=== PATIENT | female | born 2000 | race Caucasian/White ===

== ENCOUNTER 2022-05-29 08:54 | Emergency (ER) | payer OTHER | END 2022-05-29 10:40 | disposition home or self-care (01) | LOC: CSHERS 08:54 | DX: K80.50 Calculus of bile duct without cholangitis or cholecystitis without obstruction (principal) | CPT/HCPCS: 76705 ==

== ENCOUNTER 2022-06-06 09:27 | Inpatient (IN) | payer OTHER ==
[~2022-06-06 09:27] MED LIST: Iopamidol 300 61% 100 ML VIAL FS ONE
[2022-06-06] MEDS ORDERED: Ketorolac Tromethamine 30 MG/ML VIAL ONE ×3 (10:18→15:04)
[2022-06-06] MEDS ORDERED: Ondansetron PF 4 MG/2 ML Vial ONE ×2 (10:18→12:58)
[2022-06-06 10:19] LABS: #Eosinphils 0.1 10x3/uL (0.0-0.5); #Monocytes 1.3 10x3/uL (0.0-1.1); #Neutrophils 15.2 10x3/uL (1.5-8.4); %Basophils 0.2 % (0.0-2.0); %Eosinophils 0.8 % (0.0-6.0); %Lymphocytes 8.9 % (18.0-47.0); %Monocytes 7.1 % (0.0-10.0); %Neutrophils 82.3 % (40.0-75.0); Hemoglobin 12.1 g/dL (12.0-15.5); Mean Corpuscular HGB CONC 32.8 g/dL (32.0-36.0); Mean Corpuscular Hemoglobin 28.7 pg (27.0-33.0); Mean Corpuscular Volume 87.4 fl (81.6-98.3); Mean Platelet Volume 9.7 fl (7.4-10.4); Platelet Count 398 10x3/uL (150-450); RBC Distribution Width 12.8 % (11.5-14.5); Red Blood Cell (RBC) Count 4.22 10x6/uL (3.90-5.03); White Blood Cell (WBC) Count 18.4 10x3/uL (3.5-10.5)
[2022-06-06 10:26] LABS: BHCG - Serum Negative (NEGATIVE); Pregs Control Background? CLEAR/WHITE (CLR/WHITE); Pregs Control Bar Appear? YES (CONTROL BAR)
[2022-06-06 10:32] LABS: ALT (SGPT) 73 U/L (8-55); AST (SGOT) 71 U/L (5-34); Albumin 4.2 g/dL (3.5-5.0); Alkaline Phosphatase 298 U/L (40-110); Anion Gap 15 mmol/L (10-20); BUN (Urea Nitrogen) 13 mg/dL (7.0-18.7); Bilirubin, Total 0.8 mg/dL (0.2-1.2); Calc. Creatinine Clearance 0 mL/min (70-130); Calcium 9.7 mg/dL (7.8-10.44); Carbon Dioxide 24 mmol/L (22-29); Chloride 98 mmol/L (98-107); Estimated GFR 104; Globulin 3.5 g/dL (2.4-3.5); Glucose 99 mg/dL (70-105); Lipase 17 U/L (8-78); Potassium 4.1 mmol/L (3.5-5.1); Protein, Total 7.7 g/dL (6.0-8.3); Sodium 133 mmol/L (136-145)
[2022-06-06 10:39] LABS: Bilirubin Neg (Negative); Blood, Urine 10 (Negative); Clarity Slightly Cloudy (Clear); Glucose, Urine (Dipstick) Normal (Negative); Ketone, Urine 150 mg/dL (Negative); Leukocyte 500 (Negative); Nitrite Negative (Negative); Protein, Urine (Dipstick) 30 mg/dl (Neg-Trace); Specific Gravity, Urine 1.015 (1.002-1.036)
[2022-06-06 11:02] LABS: RBC/HPF 0-3 HPF (0-3)
[2022-06-06 11:03] LABS: Bacteria/HPF 2+ HPF (None Seen)
[2022-06-06] MEDS ORDERED: Piperacillin/Tazobactam 3.375 GM VIAL ONE (11:10)
[2022-06-06] MEDS ORDERED: EPINEPHrine 1 MG/ML AMP ONE (12:54)
[2022-06-06] MEDS ORDERED: Bupivacaine PF 0.5% 30 ML VIAL ONE (12:55)
[2022-06-06] MEDS ORDERED: Fentanyl 100 MCG/2 ML VIAL ONE ×4 (12:57→16:37)
[2022-06-06] MEDS ORDERED: PROPOFOL 20 ML ONE (12:57)
[2022-06-06] MEDS ORDERED: Dexamethasone 20 MG/5 ML VIAL ONE (12:58)
[2022-06-06] MEDS ORDERED: Rocuronium Bromide 10 MG/ML (10ML VIAL) ONE (12:58)
[2022-06-06] MEDS ORDERED: Dexmedetomidine 200 MCG/2 ML VIAL ONE (13:01)
[2022-06-06 13:04] LABS: SARS-CoV-2 NAA Rapid Test Not Detected (NotDetected)
[2022-06-06] MEDS ORDERED: Succinylcholine 200 MG/10 ml SYRINGE FS ONE (13:21)
[2022-06-06] MEDS ORDERED: Water For Injection,Sterile 20 ML ONE (13:26)
[2022-06-06] MEDS ORDERED: Esmolol 100 MG/10 ML VIAL ONE (14:05)
[2022-06-06] MEDS ORDERED: Glycopyrrolate 0.2 MG/ML 5 ML SYRINGE ONE (14:34)
[2022-06-06] MEDS ORDERED: HYDROcodone/Acetaminophen 10/325 mg Tablet PO PRN ×2 (15:02)
[2022-06-06] MEDS ORDERED: Calcium Carbonate 500 MG ChewTAB PO PRN (15:02)
[2022-06-06] MEDS ORDERED: Morphine 4 MG/ML VIAL SLOW IVP PRN (15:02)
[2022-06-06] MEDS ORDERED: Acetaminophen 325 MG TAB PO PRN (15:02)
[2022-06-06] MEDS ORDERED: Morphine 2 MG/ML VIAL SLOW IVP PRN (15:02)
[2022-06-06] MEDS ORDERED: Mag-Al 1200 mg/1200 mg/30 ML UDCUP PO PRN (15:02)
[2022-06-06] MEDS ORDERED: Ondansetron PF 4 MG/2 ML Vial IVP PRN (15:02)
[2022-06-06] MEDS ORDERED: Piperacillin/Tazobactam 3.375 GM in Sodium Chloride 0.9% 100 ML IVPB SCH (18:00)
[2022-06-06] MEDS: Lactated Ringer's 1,000 ML IV SCH ×3 (18:04→22:41)
[2022-06-06] MEDS: Ketorolac Tromethamine 30 MG/ML VIAL IVP SCH ×2 (18:12→23:47)
[2022-06-06] MEDS: Piperacillin/Tazobactam 3.375 GM in Sodium Chloride 0.9% 100 ML IVPB SCH (18:14)
[2022-06-06 18:36] VITALS: BMI 46.6
[2022-06-06] MEDS: Enoxaparin Sodium 40 MG/0.4 ML SYRINGE SC SCH (20:51)
[2022-06-06] MEDS ORDERED: Famotidine/PF 20 mg/2ml Vial SLOW IVP SCH (21:00)
[2022-06-07] MEDS: Piperacillin/Tazobactam 3.375 GM in Sodium Chloride 0.9% 100 ML IVPB SCH ×3 (03:59→21:17)
[2022-06-07] MEDS: Ketorolac Tromethamine 30 MG/ML VIAL IVP SCH ×4 (05:50→23:41)
[2022-06-07 06:11] LABS: ALT (SGPT) 67 U/L (8-55); AST (SGOT) 46 U/L (5-34); Albumin 3.3 g/dL (3.5-5.0); Alkaline Phosphatase 230 U/L (40-110); Anion Gap 12 mmol/L (10-20); BUN (Urea Nitrogen) 7 mg/dL (7.0-18.7); Bilirubin, Total 0.4 mg/dL (0.2-1.2); Calc. Creatinine Clearance 250 mL/min (70-130); Carbon Dioxide 22 mmol/L (22-29); Chloride 108 mmol/L (98-107); Estimated GFR 128; Glucose 121 mg/dL (70-105); Potassium 4.3 mmol/L (3.5-5.1); Protein, Total 6.3 g/dL (6.0-8.3); Sodium 138 mmol/L (136-145)
[2022-06-07 06:17] LABS: #Monocytes 0.8 10x3/uL (0.0-1.1); #Neutrophils 17.7 10x3/uL (1.5-8.4); %Basophils 0.1 % (0.0-2.0); %Lymphocytes 4.8 % (18.0-47.0); %Monocytes 4.1 % (0.0-10.0); %Neutrophils 90.4 % (40.0-75.0); Hemoglobin 11.8 g/dL (12.0-15.5); Mean Corpuscular HGB CONC 33.8 g/dL (32.0-36.0); Mean Corpuscular Hemoglobin 28.9 pg (27.0-33.0); Mean Corpuscular Volume 85.3 fl (81.6-98.3); Mean Platelet Volume 10.1 fl (7.4-10.4); Platelet Count 382 10x3/uL (150-450); RBC Distribution Width 12.9 % (11.5-14.5); Red Blood Cell (RBC) Count 4.09 10x6/uL (3.90-5.03); White Blood Cell (WBC) Count 19.5 10x3/uL (3.5-10.5)
[2022-06-07] MEDS: Lactated Ringer's 1,000 ML IV SCH (11:24)
[2022-06-07] MEDS ORDERED: Ketorolac Tromethamine 30 MG/ML VIAL ONE (12:00)
[2022-06-07] MEDS: Enoxaparin Sodium 40 MG/0.4 ML SYRINGE SC SCH (21:18)
[2022-06-08] MEDS: Piperacillin/Tazobactam 3.375 GM in Sodium Chloride 0.9% 100 ML IVPB SCH ×3 (04:04→21:02)
[2022-06-08 05:16] LABS: #Basophils 0.1 10x3/uL (0.0-0.2); #Neutrophils 12.5 10x3/uL (1.5-8.4); %Basophils 0.3 % (0.0-2.0); %Eosinophils 0.2 % (0.0-6.0); %Lymphocytes 20.1 % (18.0-47.0); %Monocytes 5.6 % (0.0-10.0); Hemoglobin 11.6 g/dL (12.0-15.5); Mean Corpuscular HGB CONC 32.4 g/dL (32.0-36.0); Mean Corpuscular Hemoglobin 28.4 pg (27.0-33.0); Mean Corpuscular Volume 87.5 fl (81.6-98.3); Mean Platelet Volume 9.8 fl (7.4-10.4); Platelet Count 427 10x3/uL (150-450); RBC Distribution Width 13.5 % (11.5-14.5); Red Blood Cell (RBC) Count 4.09 10x6/uL (3.90-5.03); White Blood Cell (WBC) Count 17.1 10x3/uL (3.5-10.5)
[2022-06-08] MEDS: Ketorolac Tromethamine 30 MG/ML VIAL IVP SCH ×4 (05:56→23:53)
[2022-06-08] MEDS: Enoxaparin Sodium 40 MG/0.4 ML SYRINGE SC SCH (21:02)
[2022-06-09] MEDS: Piperacillin/Tazobactam 3.375 GM in Sodium Chloride 0.9% 100 ML IVPB SCH (04:11)
[2022-06-09] MEDS: Ketorolac Tromethamine 30 MG/ML VIAL IVP SCH (05:40)
[2022-06-09 05:59] LABS: #Basophils 0.1 10x3/uL (0.0-0.2); #Eosinphils 0.2 10x3/uL (0.0-0.5); #Monocytes 0.6 10x3/uL (0.0-1.1); #Neutrophils 4.1 10x3/uL (1.5-8.4); %Basophils 0.7 % (0.0-2.0); %Eosinophils 1.7 % (0.0-6.0); %Lymphocytes 46.1 % (18.0-47.0); %Monocytes 6.2 % (0.0-10.0); %Neutrophils 43.3 % (40.0-75.0); Hemoglobin 10.4 g/dL (12.0-15.5); Mean Corpuscular HGB CONC 31.9 g/dL (32.0-36.0); Mean Corpuscular Hemoglobin 28.3 pg (27.0-33.0); Mean Corpuscular Volume 88.6 fl (81.6-98.3); Platelet Count 349 10x3/uL (150-450); RBC Distribution Width 13.7 % (11.5-14.5); Red Blood Cell (RBC) Count 3.68 10x6/uL (3.90-5.03); White Blood Cell (WBC) Count 9.5 10x3/uL (3.5-10.5)
[2022-06-09 09:04] VITALS: BP 128/64; TEMP 97.9
== END 2022-06-09 10:08 | disposition home or self-care (01) | DRG 418 ==
LOC: CSHERS 09:27 → CSHTELE 17:53
PROVIDERS: ADMIT Surgery; ATTEND Surgery
PROC: 0FT44ZZ Resection of Gallbladder, Percutaneous Endoscopic Approach (ICD-10-PCS; principal; 2022-06-06)
DX: K81.0 Acute cholecystitis (principal); F84.0 Autistic disorder; Z68.42 Body mass index [BMI] 45.0-49.9, adult; E66.01 Morbid (severe) obesity due to excess calories; F41.9 Anxiety disorder, unspecified; Z79.899 Other long term (current) drug therapy; Z20.822 Contact with and (suspected) exposure to COVID-19
CPT/HCPCS: 36415; 36416; 74177; 76705; 80053; 81003; 81015; 83605; 83690; 84703; 85025; 87040; 87086; 88304; 94760; C1713; J0171; J1100; J1650; J1885; J2405; J2543; J2704; J3010; J3490; J7120; Q9967; S0020; S0028; U0002